=== PATIENT | female | born 1960 | race Caucasian/White ===

== ENCOUNTER → 2019-11-04 | Outpatient (CLI) | payer OTHER | LOC: M.SLEEPLAB 11:00 | DX: R06.83 Snoring (principal); R53.83 Other fatigue; M21.611 Bunion of right foot; Z79.899 Other long term (current) drug therapy ==

== ENCOUNTER → 2021-09-16 | Outpatient (CLI) | payer OTHER | LOC: M.CT 07:18 | PROVIDERS: ATTEND Family Medicine | DX: Z13.6 Encounter for screening for cardiovascular disorders (principal); I25.10 Atherosclerotic heart disease of native coronary artery without angina pectoris ==

== ENCOUNTER → 2021-09-16 | Outpatient (CLI) | payer OTHER | LOC: M.MRI 07:16 | PROVIDERS: ATTEND Family Medicine | DX: M47.812 Spondylosis without myelopathy or radiculopathy, cervical region (principal); M25.78 Osteophyte, vertebrae; M48.02 Spinal stenosis, cervical region; M54.2 Cervicalgia; E78.2 Mixed hyperlipidemia ==

== ENCOUNTER → 2021-10-03 | Outpatient (CLI) | payer OTHER | LOC: M.CT 09-30 11:00 | PROVIDERS: ATTEND Family Medicine | DX: J98.11 Atelectasis (principal); I31.3 Pericardial effusion (noninflammatory); R91.1 Solitary pulmonary nodule ==